=== PATIENT | female | born 1930 | race Caucasian/White ===

== ENCOUNTER 2016-10-01 14:00 | Outpatient (RCR) | payer MEDICARE, BC ==
[2016-09-25 14:25] VITALS: BP 113/66; PULSE 74; TEMP 97.7
[2016-10-01 12:10] LABS: ADD PATHOLOGY DIFF REVIEW NO
[2016-10-01 12:16] VITALS: BP 102/68; PULSE 85; TEMP 97.7
[2016-10-01 12:16] LABS: MEAN CELL VOLUME 98 fl (80.0-100.0); MEAN CORPUSCULAR HGB CONC 34 g/dl (33.0-37.0); MEAN PLATELET VOLUME 10.6 fl (7.4-10.4); PLATELET COUNT 131 K/mm3 (130-400); RED BLOOD COUNT 3.55 M/mm3 (4.10-5.30); REDCELL DISTRIBUTION WIDTH-CV 14.4 % (11.5-14.5)
[2016-10-01 12:19] LABS: HEMATOCRIT 34.8 % (37.0-47.0); HEMOGLOBIN 11.7 g/dl (12.5-16.0); MEAN CORPUSCULAR HEMOGLOBIN 33 pg (27.0-31.0); WHITE BLOOD COUNT 38.5 K/mm3 (4.8-10.8)
[2016-10-01 12:26] LABS: BAND 9 % (0-10); NEUTROPHILS 91 % (42.0-75.2); TOTAL CELLS COUNTED 100
[2016-10-01 12:32] LABS: ALBUMIN 2.9 gm/dL (3.5-5.0); BILIRUBIN,TOTAL 0.9 mg/dL (0.0-1.0); CALCIUM 8.1 mg/dL (8.4-10.2); CREATININE, serum 1.04 mg/dL (0.52-1.25); POTASSIUM 3.9 mmol/L (3.4-5.0); TOTAL PROTEIN 5.8 gm/dL (6.4-8.2)
[2016-10-01 12:50] LABS: URIC ACID 2.7 mg/dL (2.5-6.2)
[~2016-10-01 14:00] MED LIST: ASPIRIN 81M81 MG/TA2 PO; ATROVENT NASAL15 ML NS; INDERAL 20MG20 MG PO; KLONOPIN 0.5MG0.5 MG PO; NORCO 325 MG-51 TAB PO; PEPCID 20MG TAB20 MG PO; XANAX 0.5MG0.5 MG PO; ZOCOR 20MG20 MG PO
[2016-10-07] MEDS ORDERED: UNABLE TO ASSESS (14:21)
[2016-10-07] MEDS ORDERED: ATROVENTNS0.03% NS (16:46)
[2016-10-07] MEDS ORDERED: NORCO 325 MG-51 TAB PO (18:48)
[2016-10-07] MEDS ORDERED: PREDNISONE20 MG PO (18:48)
[2016-10-07] MEDS ORDERED: ZYLOPRIM 300MG300 MG PO (18:49)
[2016-10-07] MEDS ORDERED: COMPAZINE 110 MG/TAB PO (18:49)
[2016-10-16] MEDS ORDERED: HEPARIN LOCK FLU5 M1 IV (10:34)
[2016-10-16] MEDS ORDERED: NS INT FLUSH 1010 ML IV (10:37)
[2016-10-16] MEDS ORDERED: LASIX 20MG TABL20 MG PO (10:40)
[2016-10-16] MEDS ORDERED: BIOTENE MOIST44.3 ML PO (10:42)
[2016-10-16] MEDS ORDERED: ATIVAN 2MG/ML2 MG/ML IV (10:44)
[2016-10-16] MEDS ORDERED: ROXANOL 20MG20 MG/ML PO (10:44)
[2016-10-16] MEDS ORDERED: TRANSDERM-0.5 MG/21 TD (10:44)
== END 2016-12-24 | disposition home or self-care (01) ==
LOC: EUO
PROVIDERS: Internal Medicine
DX: C83.38 Diffuse large B-cell lymphoma, lymph nodes of multiple sites (principal); Z45.2 Encounter for adjustment and management of vascular access device
CPT/HCPCS: J1644